=== PATIENT | female | born 1960 | race Caucasian/White ===

== ENCOUNTER 2022-08-13 09:15 | Inpatient (IN) ==
[~2022-08-13 09:15] MED LIST: Buffered Lidocaine 1% SYRIN 1 ml INTRADERM ONE; HYDROcodone/ACETAMIN 5/325 mg TAB PO PRN; Lactated Ringers 1000 ml BAG 1,000 ML IV SCH; Metoclopramide 5 MG/ML VIAL (10 mg) IV PRN; Naloxone 0.4 mg VIAL 0.4 mg/ml 1 ml VIAL IV PRN; Ondansetron 4 mg VIAL 2 MG/ML 2 ml VIAL IV PRN; fentaNYL 100 mcg/2 ml 50 MCG/ML VIAL IV PRN
[2022-09-03] MEDS ORDERED: Lactated Ringers 1000 ml BAG 1,000 ML IV SCH ×2 (06:00→16:00)
[2022-09-03] MEDS ORDERED: Buffered Lidocaine 1% SYRIN 1 ml INTRADERM ONE (06:00)
[2022-09-03] MEDS ORDERED: Prochlorperazine 5 mg/ml 2 ml VIAL (10 mg) IV PRN (07:59)
[2022-09-03] MEDS ORDERED: Naloxone 0.4 mg VIAL 0.4 mg/ml 1 ml VIAL IV PRN (07:59)
[2022-09-03] MEDS ORDERED: HYDROmorphone 1 MG/1 ML SYRINGE IV PRN (07:59)
[2022-09-03] MEDS ORDERED: ceFAZolin 2 GM PREMIX 2 GM/50 ML BAG ONE (11:41)
[2022-09-03] MEDS ORDERED: Midazolam 2 mg/2 ml VIAL 1 mg/ml 2 ml VIAL (2 mg) ONE (13:09)
[2022-09-03] MEDS ORDERED: fentaNYL 100 mcg/2 ml 50 MCG/ML VIAL ONE ×2 (13:09→17:31)
[2022-09-03] MEDS ORDERED: Phenylephrine IV 10 MG/ML 1 ml VIAL ONE (13:12)
[2022-09-03] MEDS ORDERED: Lidocaine 2% PF 5 ML VIAL ONE ×2 (13:12→15:14)
[2022-09-03] MEDS ORDERED: Propofol 10 MG/ML 20 ML BTL ONE (15:24)
[2022-09-03] MEDS ORDERED: Ondansetron ODT 4 mg TAB 4 MG TAB PO PRN (15:52)
[2022-09-03] MEDS ORDERED: Ondansetron 4 mg VIAL 2 MG/ML 2 ml VIAL IV PRN (15:52)
[2022-09-03] MEDS ORDERED: Morphine 2 MG/ML SYRINGE IV PRN (15:52)
[2022-09-03] MEDS ORDERED: Lactulose 30 ml UDC PO PRN (15:52)
[2022-09-03] MEDS ORDERED: Magnesium Hydroxide LIQ 30 ML UDC PO PRN (15:52)
[2022-09-03] MEDS ORDERED: Ondansetron 4 mg VIAL 2 MG/ML 2 ml VIAL ONE (16:06)
[2022-09-03] MEDS ORDERED: Dexamethasone IV 4 MG/ML VIAL 1 ml VIAL ONE (16:06)
[2022-09-03] MEDS ORDERED: Prochlorperazine 5 mg/ml 2 ml VIAL (10 mg) ONE (18:12)
[2022-09-03] MEDS ORDERED: Phenytoin SUSP 100 MG/4 ML UDC (100 MG) PO SCH (21:00)
[2022-09-03] MEDS: Magnesium Hydroxide LIQ 30 ML UDC PO SCH (21:50)
[2022-09-03] MEDS: ceFAZolin 1 GM ADVAN 1 GM in NS 0.9% 50 ML 50 ML IVPB SCH (23:34)
[2022-09-04 06:10] LABS: Hematocrit 34 % (35-47); Hemoglobin 11.5 g/dL (12.0-16.0); Mean Platelet Volume 6.7 fL (7.4-10.4); Platelet Count 197 10^3/uL (150-450)
[2022-09-04 06:40] LABS: Calcium 8.8 mg/dL (8.6-10.3); Potassium 4.5 mmol/L (3.5-5.0)
[2022-09-04 06:46] LABS: eGFR CKD-EPI 98.3 (>60)
[2022-09-04] MEDS: ceFAZolin 1 GM ADVAN 1 GM in NS 0.9% 50 ML 50 ML IVPB SCH ×2 (07:24→15:21)
[2022-09-04] MEDS: Magnesium Hydroxide LIQ 30 ML UDC PO SCH (07:59)
[2022-09-04] MEDS ORDERED: Vitamin THERAPEUTIC TAB PO SCH (09:00)
[2022-09-04 10:59] VITALS: BP 130/70
== END 2022-09-04 16:45 | disposition home or self-care (01) | DRG 301 ==
LOC: EDSTATUS 09:15 → INTOOBSV 09-03 11:22 → AA 09-03 11:22 → SSU 09-03 19:49
PROVIDERS: ADMIT Orthopaedic Surgery Adult Reconstructive Orthopaedic Surgery; ATTEND Orthopaedic Surgery Adult Reconstructive Orthopaedic Surgery